=== PATIENT | female | born 1945 | race Asian ===

== ENCOUNTER 2025-02-11 14:36 | Emergency (ER) | payer MEDICAID ==
[~2025-02-11] VITALS: Ht 160 cm; Wt 67.1 kg
[2025-02-11 14:38] VITALS: TEMP 98.3
[2025-02-11 17:46] VITALS: BP 138/53; O2SAT 97
== END 2025-02-11 17:20 ==
LOC: ER 14:40
DX: S09.90XA Unspecified injury of head, initial encounter (principal); M47.812 Spondylosis without myelopathy or radiculopathy, cervical region; I10 Essential (primary) hypertension; Z86.73 Personal history of transient ischemic attack (TIA), and cerebral infarction without residual deficits; Z79.01 Long term (current) use of anticoagulants; W19.XXXA Unspecified fall, initial encounter; Y93.89 Activity, other specified; Y92.89 Other specified places as the place of occurrence of the external cause; Y99.8 Other external cause status
CPT/HCPCS: 70450-TC; 70486-TC; 71045-TC; 72125-TC; 73030-TC; 73521